=== PATIENT | male | born 1960 | race Caucasian/White ===

== ENCOUNTER → 2016-09-04 | Outpatient (CLI) | payer OTHER ==
--- NOTE | 2016-09-04 15:07 | KCIC ---
Indication: Head trauma with left posterior head pain and unsteady gait. Axial imaging through the brain was performed without contrast. One or more of the following individualized dose reduction techniques were utilized for this examination: 1. Automated exposure control 2. Adjustment of the mA and/or kV according to patient size 3. Use of iterative reconstruction technique There is soft tissue swelling in the left posterior parietal scalp. No depressed calvarial fracture is identified. The ventricles and sulci are within normal limits. No sulcal effacement, midline shift or hemorrhage is detected. The cisterns are patent. The visualized paranasal sinuses are clear. IMPRESSION: Left posterior parietal scalp swelling. No acute intracranial process is detected. Electronically signed by: Omari Singer MD (09/04/2016 3:04 PM)
== END | disposition home or self-care (01) ==
LOC: KCIC CT 14:38
PROVIDERS: ATTEND Nurse Practitioner
DX: S06.0X9A Concussion with loss of consciousness of unspecified duration, initial encounter (principal); M79.89 Other specified soft tissue disorders; X58.XXXA Exposure to other specified factors, initial encounter; Y93.89 Activity, other specified; Y92.89 Other specified places as the place of occurrence of the external cause; Y99.9 Unspecified external cause status
CPT/HCPCS: 70450